=== PATIENT | female | born 1985 | race Caucasian/White ===

== ENCOUNTER 2017-04-18 09:13 | Observation (INO) | payer OTHER ==
[~2017-04-18 09:13] MED LIST: DEXAMETHASONE 4 MG/ML VIAL IVP ONE; ceFAZolin 2 GM/DEXTROSE 100 ML IV ONE
[2017-04-18] MEDS ORDERED: LIDO/EPI 1% **Not for Epidural 20 ML MDV ONE (09:19)
[2017-04-18] MEDS ORDERED: CEFAZOLIN 2 GM/DEXTROSE/100 ML BAG IV ONE (09:40)
[2017-04-18] MEDS ORDERED: LIDOCAINE 1% 2 ML INJ ONE (09:40)
[2017-04-18] MEDS ORDERED: MIDAZOLAM 2 MG/2 ML VIAL IVP ONE (09:42)
[2017-04-18] MEDS ORDERED: LR 1,000 ML IV ONE (09:45)
[2017-04-18] MEDS ORDERED: LIDOCAINE 1% 2 ML INJ ID PRN (09:45)
--- NOTE | 2017-04-18 09:45 | PDANEPAE ---
ANE History of Present Illness goiter ANE Past Medical History - Cardiovascular History Hx Hypertension: No Hx Arrhythmias: No Hx Chest Pain: No Hx Coronary Artery / Peripheral Vascular Disease: No Hx CHF / Valvular Disease: No Hx Palpitations: No - Pulmonary History Hx COPD: No Hx Asthma/Reactive Airway Disease: No Hx Recent Upper Respiratory Infection: No Hx Oxygen in Use at Home: No Hx Sleep Apnea: No Sleep Apnea Screening Result - Last Documented: Negative - Neurologic History Hx Cerebrovascular Accident: No Hx Seizures: No Hx Dementia: No - Endocrine History Hx Diabetes: No Endocrine History Comment: thyroid nodule currently - Renal History Hx Renal Disorders: No - Liver History Hx Hepatic Disorders: No - Neurological & Psychiatric Hx Hx Neurological and Psychiatric Disorders: No - Cancer History Hx Cancer: No - Congenital Disorder History Hx Congenital Disorders: No - GI History Hx Gastrointestinal Disorders: Yes Gastrointestinal History Comment: ibs controlled with diet - Other Health History Other Health History: none - Chronic Pain History Chronic Pain: No - Surgical History Prior Surgeries: wisdom teeth ANE Review of Systems - Exercise capacity METS (RN): 4 METS ANE Patient History - Allergies Allergies/Adverse Reactions: No Known Allergies Allergy (Verified 04/07/17 11:01) - Home Medications Home Medications: Herbals/Supplements -Info Only 1 ea PO DAILY 04/07/17 [Last Taken 1 Week Ago] - NPO status NPO Since - Liquids (Date): 04/17/17 NPO Since - Liquids (Time): 21:30 NPO Since - Solids (Date): 04/17/17 NPO Since - Solids (Time): 21:30 - Smoking Hx Smoking Status: Former smoker - Family Anes Hx Family Hx Anesthesia Complications: none ANE Labs/Vital Signs - Vital Signs Height: 172.72 cm Weight: 65.771 kg ANE Physical Exam - Airway Neck exam: FROM Mallampati Score: Class 1 Mouth exam: normal dental/mouth exam - Pulmonary Pulmonary: no respiratory distress - Cardiovascular Cardiovascular: regular rate and rhythym - ASA Status ASA Status: I ANE Anesthesia Plan Anesthesia Plan: general endotracheal anesthesia
[2017-04-18] MEDS ORDERED: MIDAZOLAM 2 MG/2 ML VIAL ONE (09:55)
[2017-04-18] MEDS ORDERED: LIDOCAINE 2% 100 MG/5 ML SYR ONE (09:59)
[2017-04-18] MEDS ORDERED: ROCURONIUM 50 MG/5 ML VIAL ONE (09:59)
[2017-04-18] MEDS ORDERED: DEXAMETHASONE 4 MG/ML VIAL ONE ×2 (09:59→10:10)
[2017-04-18] MEDS ORDERED: ONDANSETRON 4 MG/2 ML VIAL ONE (09:59)
[2017-04-18] MEDS ORDERED: PROPOFOL 200 MG/20 ML VIAL ONE (10:00)
[2017-04-18] MEDS ORDERED: fentaNYL 100 MCG/2 ML INJ ONE ×3 (10:00→12:09)
--- NOTE | 2017-04-18 10:09 | PDHPUP ---
History & Physical Update H&P update statement: This history and physical update is based on an assessment of the patient which was completed after admission or registration (within 24 hours), but prior to the surgery/procedure. H&P update: H&P reviewed & patient examined, no change in patient's condition since H&P completed
[2017-04-18] MEDS ORDERED: D5W 1/2 NS W/ 20 KCl/L 1,000 ML IV SCH (10:15)
[2017-04-18 10:39] LABS: CALCIUM 9.3 mg/dL (8.5-10.4); CREATININE 0.8 mg/dL (0.6-1.0)
[2017-04-18 10:48] LABS: PTH INTACT NO MINERALS 50.3 pg/ml (10.8-79.4)
[2017-04-18] MEDS ORDERED: ONDANSETRON 4 MG/2 ML VIAL IVP PRN (10:48)
[2017-04-18] MEDS ORDERED: NALOXONE HCL 0.4 MG/ML INJ IVP PRN (10:48)
[2017-04-18] MEDS ORDERED: PROMETHAZINE HCL 25 MG/ML INJ IVP PRN (10:48)
--- NOTE | 2017-04-18 11:58 | POSTOPPROG ---
Post Op Note Date of Operation: 04/18/17 Surgeon: Al Puri Stave Block Roller: Carly Anesthesia: GET(General Endotracheal) Pre-op Diagnosis: right thyroid mass Post-op Diagnosis: same Procedure: right hemithyroidectomy Findings: soft mass c/w goiter Inf/Abcess present in the surg proc area at time of surgery?: No Depth: Deep Incisional (Fascial) EBL: 50-100 Total fluids administered: 1000 Drains: Cortes Schumacher (right thyroid lobe)
[2017-04-18] MEDS ORDERED: BACITRACIN OINTMENT 1 PACKET TP ONE ×3 (12:05→20:10)
[2017-04-18] MEDS ORDERED: HYDROmorphONE/DILAUDID 1 MG/ML SYR ONE (12:05)
[2017-04-18] MEDS ORDERED: PROMETHAZINE HCL 25 MG/ML INJ ONE (12:06)
[2017-04-18] MEDS: HYDROmorphONE/DILAUDID 1 MG/ML SYR IVP PRN ×3 (12:07→12:55)
[2017-04-18] MEDS: fentaNYL 100 MCG/2 ML INJ IVP PRN ×2 (12:10→12:30)
[2017-04-18] MEDS: ONDANSETRON 4 MG/2 ML VIAL IVP PRN ×2 (13:45→17:19)
[2017-04-18] MEDS: HYDROCOD/APAP 7.5/325 IN 15ML UDCUP PO PRN ×2 (13:45→20:24)
[2017-04-18] MEDS: DEXAMETHASONE 4 MG/ML VIAL IVP SCH ×2 (13:46→22:35)
--- NOTE | 2017-04-18 14:06 | POSTANESTH ---
Post Anesthetic Evaluation Cardiovascular Status: Normal, Stable Respiratory Status: Normal, Stable Level of Consciousness/Mental Status: Can Participate in Eval Pain Control: Adequate, Prn Tx Ordered Nausea/Vomiting Control: Adequate, Prn Tx Ordered Complications Possibly Related to Anesthesia: None Noted
--- NOTE | 2017-04-18 14:50 | SOAPPROG ---
SOAP Progress Note Assessment/Plan: Assessment: 31 year old female s/p right hemithyroidectomy. She felt as though her throat was closing up today. Externally, she has no evidence of hematoma. Laryngoscopic evaluation is totally normal. - I reassured patient - I wrote her for some IV morphine - Ice to the neck - Patient will be discharged home tomorrow AM Seen with Dr. Carroll 04/18/17 14:47 04/18/17 14:50 Subjective: Called to the floor urgently as patient felt as though her airway was getting constricted. No voice changes. Started after she coughed. Slight pain with swallowing. Drain output minimal, per nurse. Objective: Vital Signs Temp Pulse Resp BP Pulse Ox 36.6 C 79 18 105/70 96 04/18/17 14:05 04/18/17 14:05 04/18/17 14:05 04/18/17 14:05 04/18/17 14:05 04/17/17 04/18/17 04/19/17 05:59 05:59 05:59 Intake Total 1100 Output Total 80 Balance 1020 Voice strong, no stridor OP normal Neck flat, no hematoma Laryngoscopic evaluation normal without evidence of edema ICD10 Worksheet Patient Problems: Problems Problem Status Onset H/O partial thyroidectomy Acute - ICD10 Problem Qualifiers (1) H/O partial thyroidectomy
[2017-04-18] MEDS: ACETAMINOPHEN 500 MG TAB PO PRN (17:24)
[2017-04-19] MEDS: ACETAMINOPHEN 500 MG TAB PO PRN (02:13)
[2017-04-19] MEDS: DEXAMETHASONE 4 MG/ML VIAL IVP SCH (06:15)
[2017-04-19] MEDS: OXYCODONE/APAP 5/325 TAB PO PRN ×2 (06:31→11:43)
--- NOTE | 2017-04-19 07:24 | SOAPPROG ---
SOAP Progress Note Assessment/Plan: Assessment: patient with c/o st Avss Pharynx wnl on exam, no abrasion or erythema pt states throat pain is in region of larynx/hypopharynx Voice strong Talha d/jennyfer neck flat will d/c pt later today if tolerating po well and throat pain well controlled Stable pod #1 Plan: 04/19/17 07:22 po Objective: Vital Signs Temp Pulse Resp BP Pulse Ox 36.7 C 58 L 15 91/57 L 95 04/19/17 05:04 04/19/17 05:04 04/19/17 05:04 04/19/17 05:04 04/19/17 05:04 04/18/17 04/19/17 04/20/17 05:59 05:59 05:59 Intake Total 1600 Output Total 115 Balance 1485 ICD10 Worksheet Patient Problems: Problems Problem Status Onset H/O partial thyroidectomy Acute
[2017-04-19 07:32] VITALS: RESP 16
[2017-04-19] MEDS ORDERED: Herbals/Supplements -Info Only PO SCH (09:00)
[2017-04-19 11:13] VITALS: O2SAT 93
[2017-04-19 11:38] VITALS: BP 93/64; PULSE 83; TEMP 98.3
== END 2017-04-19 13:28 | disposition home or self-care (01) ==
LOC: INTOOBSV 09:13 → F3E 09:13
PROVIDERS: ADMIT Otolaryngology; ATTEND Otolaryngology
PROC: 0GTH0ZZ Resection of Right Thyroid Gland Lobe, Open Approach (ICD-10-PCS; principal; 2017-04-18 10:30)
DX: E04.9 Nontoxic goiter, unspecified (principal)
CPT/HCPCS: 60220; G0378; J0690; J1100; J1170; J2001; J2250; J2405; J2550; J2704; J3010